=== PATIENT | female | born 1960 | race Caucasian/White ===

== ENCOUNTER → 2016-11-09 | Day surgery (SDC) | payer MEDICARE, OTHER ==
[~2016-11-09] VITALS: Ht 162.6 cm; Wt 83.4 kg
[~2016-11-09] MED LIST: ACETAMINOPHEN 1000 MG/100 ML VIAL IV ONE; ASPI-110 PO; BRIL90TA PO; BUPIVACAINE/EPINEPHRINE 0.25% PF 30 ML VIAL ONE; CARV12.52 PO; CITA20TA4 PO; HEPARIN SODIUM - IV 10,000 UNITS/10 ML VIAL ONE; HEPARIN SODIUM - SQ 10,000 UNITS/ML VIAL ONE; HYDR-3801 PO; HYDROmorphone HCL PF 2 MG/ML VIAL ONE; INSU1.2I SQ; INSULIN HUMAN REGULAR 1,000 UNITS/10 ML VIAL SQ PRN; LACTATED RINGER'S 1000 ML IV SCH; LISI10TA3 PO; METOPROLOL TARTRATE 25 MG TAB ONE; METOPROLOL TARTRATE 25 MG TAB PO PRN; MIDAZOLAM HCL 2 MG/2 ML VIAL ONE; ONDANSETRON HCL 4 MG/2 ML VIAL IV PUSH ONE; PROPOFOL 200 MG/20 ML AMP IV ONE; ROSU1TAB8 PO; SODIUM CHLOR 0.9% 250 ML INJ 250 ML IV ONE; SODIUM CHLORID 0.9% 500 ML INJ 500 ML IV ONE; SODIUM CHLORID 0.9% 500 ML IV SCH; VANCOMYCIN HCL 1000 MG VIAL ONE; ePHEDrine/NS 25 MG/5 ML SYR IV ONE; hydrALAZINE HCL 20 MG/ML VIAL IV ONE
[2016-11-09 11:12] LABS: AUTOMATED NEUTROPHIL # 2.4 TH/MM3 (1.8-7.7); BASOPHIL % 0.7 % (0.0-2.0); EOSINOPHIL % 0.2 % (0.0-4.0); HEMATOCRIT 30.7 % (35.0-46.0); HEMO FLAGS DIFF FINAL; LYMPH % 24.3 % (9.0-44.0); LYMPHOCYTE # 0.9 TH/MM3 (1.0-4.8); MEAN CELL VOLUME 84.8 FL (80.0-100.0); MEAN CORPUSCULAR HEMOGLOBIN 27.8 PG (27.0-34.0); MEAN CORPUSCULAR HGB CONC 32.8 % (32.0-36.0); MONO % 9.4 % (0.0-8.0); NEUT % 65.4 % (16.0-70.0); PLATELET COUNT 121 TH/MM3 (150-450); RED BLOOD COUNT 3.61 MIL/MM3 (4.00-5.30); RED CELL DISTRIBUTION WIDTH 14.7 % (11.6-17.2); WHITE BLOOD COUNT 3.6 TH/MM3 (4.0-11.0)
[2016-11-09 11:13] VITALS: BP 160/75; PULSE 63; RESP 16; TEMP 98.2; O2SAT 98
--- NOTE | 2016-11-09 11:17 | RADRPT ---
EXAM DATE/TIME: 11/09/2016 10:51 [place] COMPARISON: No previous studies available for comparison. INDICATIONS : Evaluate for pneumonia, pneumothorax, and communicable disease. Preop for left arm AV fistula repair. MEDICAL HISTORY : Renal insufficiency. SURGICAL HISTORY : Cardiac stents. Dialysis port. ENCOUNTER: Initial ACUITY: 1 day PAIN SCORE: 0/10 LOCATION: Bilateral chest FINDINGS: A single view of the chest demonstrates the lungs to be symmetrically aerated without evidence of mas s, infiltrate or effusion. There is a right-sided double-lumen central venous line in place with the tip projecting at the junction of the superior vena cava and right atrium. The heart size remains mil d to moderately enlarged. Osseous structures are intact. CONCLUSION: 1. No acute cardiopulmonary disease. 2. Cardiomegaly. Daniel Monroe MD on November 09, 2016 at 11:15 Board Certified Radiologist. This report was verified electronically.
[2016-11-09 11:33] LABS: BICARBONATE 25.9 MEQ/L (21.0-32.0); POTASSIUM 3.8 MEQ/L (3.5-5.1)
[2016-11-09 18:56] VITALS: BP 142/64; PULSE 57; RESP 19; TEMP 97.8; O2SAT 95
--- NOTE | 2016-11-10 09:28 | MP ---
cc: JEMAL COTE DATE OF SURGERY: 11/09/2016 PREOPERATIVE DIAGNOSIS End-stage renal disease, need for AV fistula access. PROCEDURE Left upper extremity brachiocephalic AV fistula. SURGEON Jemal Cote, DO IV FLUIDS 500 ccs. URINE OUTPUT Not calculated. ESTIMATED BLOOD LOSS Minimal. COMPLICATIONS None. DISPOSITION To PACU. PROCEDURE The patient's left upper extremity was prepped and draped in sterile fashion after being given 1 gram of IV vancomycin. The patient was under general endotracheal anesthesia and then we used approximately 10 ccs of 0.25% Marcaine with epinephrine. We made an incision just above and across the left antecubital fossa with a scalpel and electrocautery. I dissected down to the cephalic and basilic vein. It should be noted the cephalic vein appeared to be more appropriate size vein in comparison to the basilic by diameter and quality. Based on this I used multiple small clips and medium clips as needed to tie off side branches and then I used a 0 suture ligature and a medium clip in order to divide the vein distally. I then divided it and irrigated. It did distend with irrigation. I used a bulldog clamp to control it. I then fashion and I cobra-head /mohit-shaped appearance using the micro Dickey scissors. I then got control of the brachial artery with two pediatric profunda clamps and performed an arteriotomy with an 11-blade and micro Dickey scissors. I then did end-to-side anastomosis of the cephalic vein with a 5-0 Prolene in a continuous running fashion. At the end of the procedure there was no correction sutures needed and there was a good signal in the radial and ulnar distribution as well as the cephalic vein. I then used Surgicel to help out with hemostasis and closed in layers with interrupted 2-0 Vicryl absorbable sutures and then a 4-0 Monocryl running stitch with Dermabond. The patient tolerated the procedure well. Jemal Cote DO RM/TLL /5:36 PM /8:56 AM [facility]ITAL[facility]
--- NOTE | 2016-11-10 23:11 | EKG ---
Date Performed: 11/09/2016 Time Performed: 10:40:18 PTAGE: 56 years EKG: Sinus rhythm MARKED LEFT AXIS DEVIATION Left bundle branch block ABNORMAL ECG NO PREVIOUS TRACING DOCTOR: Kristopher Rodríguez Interpretating Date/Time 11/10/2016 23:11:10
== END | disposition home or self-care (01) ==
LOC: HSDC 09:59 → EDUNIT# 12:00
PROVIDERS: ATTEND Surgery
DX: N18.6 End stage renal disease (principal); I12.0 Hypertensive chronic kidney disease with stage 5 chronic kidney disease or end stage renal disease; I51.7 Cardiomegaly; E11.9 Type 2 diabetes mellitus without complications; Z99.2 Dependence on renal dialysis
CPT/HCPCS: 01844; 36818; 71010; 76937; 80048; 82948; 85025; 86850; 86900; 86901; 93005; J0131; J0360; J1170; J1644; J2250; J2405; J3370; J7040; J7050